=== PATIENT | male | born 1995 | race Caucasian/White ===

== ENCOUNTER → 2018-10-30 | Outpatient (CLI) | payer OTHER ==
--- NOTE | 2018-10-31 08:44 | REP ---
CT RIGHT SHOULDER WITHOUT CONTRAST: 10/30/2018. Comparison: MRI 10/10/2018, x-ray 09/26/2018 at [facility]. 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 TECHNIQUE: Axial soft-tissue and bone windows with coronal and sagittal thin section reconstructions and 3-D surface renderings of the scapula with humerus subtracted. Findings. 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 The posterior humeral head shows very subtle flattening and indentation that might reflect a very minimal Hill-Sachs lesion. I do not see evidence of an acute fracture. There is no loose body or osteochondral defect. The AC joint shows slight elevation of the clavicle in relationship to the acromion but no widening of the joint space. There is inferior spurring from a type 3 acromion. I would note that on the MRI of the shoulder, the acromion and clavicular inferior margins are congruent. The scapula is without evidence of acute fracture. Biceps tendon is seated in its groove. The acromiohumeral distance is normal. There is no atrophy of the supraspinatus muscle. Likewise the infraspinatus, teres minor and subscapularis muscles are grossly intact. Impression: 1. 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 2. Subtle flattening and indentation posterior aspect greater tuberosity humeral head with Hill-Sachs type lesion. No deep cleft. 3. Type 3 acromion with inferior hooking seen best on sagittal reconstructions. There is no acute fracture, subluxation or focal bone lesion. 4. Slight elevation of the clavicle in relationship to the acromion on coronal and sagittal views. This joint relationship was congruent on the MRI. Electronically Signed by Lucius West MD 10/31/2018 05:43 P
== END ==
LOC: M RAD 17:48
PROVIDERS: ATTEND Orthopaedic Surgery
DX: M25.811 Other specified joint disorders, right shoulder (principal); M75.81 Other shoulder lesions, right shoulder; M24.411 Recurrent dislocation, right shoulder; M89.9 Disorder of bone, unspecified